=== PATIENT | female | born 1995 | race Caucasian/White ===

== ENCOUNTER 2017-01-01 06:26 | Emergency (ER) | payer BC, OTHER ==
[~2017-01-01] VITALS: Ht 165.1 cm; Wt 78.8 kg
[~2017-01-01 06:26] MED LIST: BCPILLS PO; ESCI1TAB10 PO; LAMO200T38 PO; LAMO25TA PO; MULT-506 PO; PRLSR20 PO
[2017-01-01 06:30] VITALS: TEMP 36.7; Ht 165.1 cm; Wt 78.8 kg
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
[2017-01-01 07:27] VITALS: BP 126/86; PULSE 93; O2SAT 98
[2017-01-03 01:01] LABS: CHLAMYDIA TRACH RNA*** NOT DETECTED (NOT DETECTED); GC (NEIS GONORRHOEAE)RNA** NOT DETECTED (NOT DETECTED)
[2017-01-03 12:32] LABS: HSV TYPE 1 DNA Not Detected (Not Detected); HSV TYPE 1&2 DNA SOURCE Cervix; HSV TYPE 2 DNA Not Detected (Not Detected)
== END 2017-01-01 07:28 | disposition home or self-care (01) ==
LOC: C.EDB 06:28
DX: L73.9 Follicular disorder, unspecified (principal); F41.9 Anxiety disorder, unspecified; F31.9 Bipolar disorder, unspecified; F32.9 Major depressive disorder, single episode, unspecified; K21.9 Gastro-esophageal reflux disease without esophagitis; E28.2 Polycystic ovarian syndrome; Z80.9 Family history of malignant neoplasm, unspecified; Z83.3 Family history of diabetes mellitus; Z83.79 Family history of other diseases of the digestive system; Z82.49 Family history of ischemic heart disease and other diseases of the circulatory system; Z79.3 Long term (current) use of hormonal contraceptives; Z79.899 Other long term (current) drug therapy